=== PATIENT | female | born 1985 | race Caucasian/White ===

== ENCOUNTER 2016-08-02 20:17 | Emergency (ER) | payer MEDICAID, OTHER ==
[2016-08-02 20:39] VITALS: TEMP 97.9; BMI 26.5
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
[2016-08-02] MEDS ORDERED: Pharmacy Review for Metformin - IV Contrast Given SCH (23:45)
[2016-08-03 00:13] LABS: ALL NEG? NO
[2016-08-03 00:24] LABS: MDMA* *POSITIVE* (NEGATIVE); METHAMPHETAMINES *POSITIVE* (NEGATIVE); OXYCODONE NEG (NEGATIVE)
[2016-08-03 00:31] LABS: AUTOMATED BASOPHIL 0.6 % (0-2); AUTOMATED EOSINOPHIL 3.2 % (0-5); AUTOMATED LYMPH 26.4 % (17-44); AUTOMATED MONOCYTE 7.9 % (3-10); AUTOMATED NEUTROPHIL 61.9 % (45-76); MPV 8.7 fL (7.4-10.4)
[2016-08-03 00:43] LABS: BLOOD UREA NITROGEN 15 MG/DL (7-17); CALCIUM 9.3 MG/DL (8.4-10.2); CALCULATED OSMOLALITY 269 MOs/Kg (270-290); CHLORIDE 101 mEq/L (98-107); ETOH-MGDL < 10 mg/dL; GLUCOSE 83 mg/dL (70-99); SODIUM LEVEL 140 mEq/L (137-146); TOTAL PROTEIN 8.6 G/DL (6.3-8.2)
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
[2016-08-03 02:26] VITALS: BP 124/72; PULSE 78
== END 2016-08-03 02:25 | disposition home or self-care (01) ==
LOC: ED 20:17
DX: S30.1XXA Contusion of abdominal wall, initial encounter (principal); F19.10 Other psychoactive substance abuse, uncomplicated; V49.9XXA Car occupant (driver) (passenger) injured in unspecified traffic accident, initial encounter; Y93.9 Activity, unspecified
CPT/HCPCS: 36415; 71020; 74177; 80053; 80307; 81025; 85025; 99283; A9698